=== PATIENT | female | born 1990 | race Caucasian/White ===

== ENCOUNTER 2017-09-24 11:57 | Emergency (ER) | payer OTHER ==
[~2017-09-24] VITALS: Ht 167.6 cm; Wt 59.6 kg
[~2017-09-24 11:57] MED LIST: MOTRIN600 MG PO; Motrin PO; PERCOCET 5/31 TABLET PO; PRILOSEC20 MG PO; ZOFRAN ODT4 MG PO
[2017-09-24 12:30] LABS: APPEARANCE CLOUDY ((CLEAR)); BILIRUBIN NEGATIVE; BLOOD LARGE; COLOR YELLOW ((YELLOW)); GLUCOSE (STRIP) NEGATIVE; KETONES 20; LEUKOCYTES NEGATIVE; NITRITE NEGATIVE; PROTEIN (STRIP) 30; UROBILINOGEN 0.2 MG/DL (0.2-1.0)
[2017-09-24 12:35] LABS: ALBUMIN 4.7 g/dL (3.2-4.8); CHLORIDE 106 mEq/L (99-109); POTASSIUM 3.8 mEq/L (3.7-5.4); SODIUM 139 mEq/L (136-147)
[2017-09-24 12:38] LABS: GLUCOSE 104 mg/dL (70-99); HEMOGLOBIN 13.5 G/DL (11.9-15.5); MCH 30.9 PG (29.0-34.0); MCHC 35.5 G/DL (30.0-36.0); PLATELET COUNT 248 K/uL (156-360); RBC DIS.WIDTH-CV 11.8 % (11.8-14.6); RED BLOOD COUNT 4.37 M/uL (3.80-5.20); TOTAL PROTEIN 7.7 g/dL (6.4-8.3); WHITE BLOOD COUNT 10.6 K/uL (4.1-10.2)
[2017-09-24 12:40] LABS: TOTAL BILIRUBIN 1.6 mg/dL (0.0-1.0)
[2017-09-24 12:41] LABS: ALKALINE PHOSPHATASE 47 IU/L (3-129); CREATININE 0.7 mg/dL (0.6-1.3); GFR ESTIMATE (CALCULATED) > 59 mL/min/
[2017-09-24 12:42] LABS: UREA NITROGEN (BUN) 14 mg/dL (9-23)
[2017-09-24 12:43] LABS: AST (GOT) 23 IU/L (2-34)
[2017-09-24 12:44] LABS: ALT (GPT) 23 IU/L (3-49)
[2017-09-24 13:14] LABS: QUANTITATIVE HCG 33951.9 MIU/ML
[2017-09-24 13:29] LABS: BACTERIA NONE SEEN /HPF; EPITHELIAL CELLS RARE /HPF; MUCUS NONE SEEN /LPF; UCUL ADDED? NO; WHITE BLOOD CELLS NONE SEEN /HPF (0-5)
[2017-09-24 13:30] LABS: AMORPHOUS PHOSPHATE CRYSTALS 3+
[2017-09-24] MEDS ORDERED: ZOFRAN4 MG PO (16:38)
[2017-09-24 17:01] VITALS: BP 118/70
== END 2017-09-24 17:06 | disposition home or self-care (01) ==
LOC: EME 11:57
PROVIDERS: Nurse Practitioner Family
DX: O20.0 Threatened abortion (principal); O20.9 Hemorrhage in early pregnancy, unspecified; Z3A.01 Less than 8 weeks gestation of pregnancy
CPT/HCPCS: 76801; 80053; 81003; 84702; 85027; 99281; 99285